=== PATIENT | male | born 1955 | race Caucasian/White ===

== ENCOUNTER 2018-10-23 01:52 | Outpatient (CLI) | payer BC, SELFPAY ==
--- NOTE | 2018-10-23 07:52 | DI.RAD_ITS ---
SYMPTOM/DIAGNOSIS: BILAT KNEE PAIN, M15.9, POLYOSTEOARTHRITIS LEFT KNEE: Three views. No priors. There are post surgical changes of a patellofemoral arthroplasty. The bones are intact and normally mineralized. There is chondrocalcinosis present. The soft tissues are grossly unremarkable. IMPRESSION: 1. Status post patellofemoral arthroplasty. 2. Findings of CPPD arthropathy. RIGHT KNEE: Three views. Comparison is made with 07/06/18. There are again seen post surgical changes of a patellofemoral arthroplasty. The orthopedic hardware appears in good position without evidence of failure. There is minimal spurring seen in the medial femoral tibial joint space. Chondrocalcinosis is seen. The bones are intact. The soft tissues are unremarkable. IMPRESSION: Stable post surgical changes of the right knee. Findings of CPPD arthropathy.
== END 2018-10-23 02:12 ==
PROVIDERS: PCP Family Medicine; Visit Provider Family Medicine
DX: M25.561 Pain in right knee (principal); M25.562 Pain in left knee; M11.261 Other chondrocalcinosis, right knee; M11.262 Other chondrocalcinosis, left knee; Z98.890 Other specified postprocedural states; Z47.89 Encounter for other orthopedic aftercare
CPT/HCPCS: 73562

== ENCOUNTER 2019-01-13 11:24 | Day surgery (SDC) | payer BC, SELFPAY ==
[2019-01-13 11:31] VITALS: BP 143/87; PULSE 58; RESP 16; TEMP 35.7; O2SAT 98
[2019-01-13] MEDS: Lactated Ringers 1,000 ML 80 ML IV (11:56)
[2019-01-13] MEDS: ceFAZolin 2 GM/50 ML BAG IVPB (12:39)
[2019-01-13] MEDS: Bupivacaine 0.5% Pres-Free 30 ML VIAL ×2 (13:11→13:43)
[2019-01-13 13:51] VITALS: BP 91/59; PULSE 72; RESP 18; TEMP 36.8; O2SAT 97
[2019-01-13 13:55] VITALS: BP 99/54; PULSE 70; RESP 17; TEMP 36.8; O2SAT 97
[2019-01-13 14:00] VITALS: BP 100/56; PULSE 70; RESP 17; TEMP 36.8; O2SAT 97
[2019-01-13 14:15] VITALS: BP 114/72; PULSE 68; RESP 11; TEMP 36.5; O2SAT 95
--- NOTE | 2019-01-13 14:16 | W.PM.DSUDISC ---
Discharge Plan Disposition Patient Disposition: HOME Condition: Improving Discharge Details Attending Provider: Markos Craven Primary Care Provider: Tru Nieves Home Meds and New Rx's Prescriptions: No Action omega 4-bmn-iub-fish oil [Fish Oil] 1,000 mg (120 mg-180 mg) capsule 1 cap PO DAILY RF: 0 duloxetine [Cymbalta] 60 mg capsule,delayed release(DR/EC) 60 mg PO HS Qty: 90 RF: 4 meloxicam [Mobic] 15 mg tablet 15 mg PO DAILY Qty: 90 RF: 4 multivitamin [Daily Vitamin] 1 EACH tablet 1 tab PO DAILY RF: 0 ascorbic acid (vitamin C) 1,000 MG tablet 1 tab PO DAILY RF: 0 glucosamine sulfate 500 MG tablet 1 tab PO DAILY RF: 0 C-PAP RF: 0 Zyrtec 10 MG capsule 10 mg PO Daily PRN RF: 0 cholecalciferol (vitamin D3) 1,000 UNIT capsule 1,000 unit PO DAILY RF: 0 Discharge Instructions Additional Instructions: KEEP YOUR LEFT LEG ELEVATED ABOVE HEART LEVEL MUCH POSSIBLE FOR THE NEXT 48 HOURS. YOU MAY WALK ON YOUR LEFT LEG TO EAT OR TO TO TO THE BATHROOM, BUT FOR THE NEXT 48 HOURS, TRY TO MAXIMIZE ELEVATION. USE YOUR CRYOCUFF T0 HELP CONTROL PAIN AND SWELLING. YOU ONLY NEED TO USE CRUTCHES FOR DISCOMFORT. YOU MAY LOOSEN YOUR YUNIEL BANDAGES AND RE-WRAP THEM IF THEY FEEL TOO TIGHT. EXPECT SOME BLOODY DRAINAGE ON THE UNDERLYING GAUZE BANDAGES. ON 01/15/29, YOU MAY REMOVE ALL OF YOUR BANDAGES AND GET YOUR WOUNDS WET IN THE SHOWER WITH SOAP AND WATER. GENTLY PAT YOUR STITCHES DRY AND COVER THEM WITH GAUZE OR BANDAIDS. RE-APPLY A SINGLE 6 INCH YUNIEL BANDAGE FOR SUPPORT DURING THE DAY AND REMOVE IT EACH NIGHT FOR SLEEPING. CONTINUE TO USE YOUR CRYOCUFF NEEDED TO HELP WITH PAIN AND SWELLING. TAKE YOUR USUAL MEDICATIONS BEFORE. TAKE TYLENOL, ADVIL OR ALEVE FOR MILDER PAIN. TYLENOL MAY BE TAKEN AT THE SAME TIME ALEVE OR AT THE SAME TIME ADVIL THEY ARE METABOLIZED DIFFERENTLY AND ARE NOT CROSS TOXIC. TAKE NORCO (HYDROCODONE 5/325MG) 1-2 EVERY 4 HOURS FOR MORE SERIOUS KNEE PAIN. [facility] [place] REGULATIONS LIMIT THE AMOUNT OF NORCO THAT CAN BE PRESCRIBED AT ONE TIME TO 18 TABLETS. FOLLOW-UP WITH DR. CRAVEN IN 10-12 DAYS FOR SUTURE REMOVAL AND REVIEW OF ARTHROSCOPIC PHOTOS. Stand Alone Forms: DSU Post op Instructions, Lily Hartman (DSU) Remove Dressings/Wound Care:: 48 hours Shower/Bathe:: 48 hours Diet:: As Tolerated Discharge Orders Discharge Orders: Discharge Order (Routine); Ordered 01/13/19 Ordered By: Markos Craven
[2019-01-13 14:55] VITALS: BP 119/74; PULSE 65; RESP 16; TEMP 36; O2SAT 95
--- NOTE | 2019-01-13 16:06 | ROE_ITS ---
DATE OF PROCEDURE: January 13, 2019 PREOPERATIVE DIAGNOSIS: Left knee pain, ? medial meniscus tear with chondrocalcinosis of both menisc i. POSTOPERATIVE DIAGNOSIS: Left knee pain, ? medial meniscus tear with chondrocalcinosis of both menis ci, with medial and lateral meniscal tears. PROCEDURE: Arthroscopy of left knee with partial medial and lateral meniscectomies. SURGEON: Markos Benitez M.D. OIL DEVELOPER: Nurse. ANESTHETIC: General via LMA by Aries Schwarz CRNA PREP: ChloraPrep. INDICATIONS: This patient is 63 years of age. He was a paratrooper and sustained bilateral patellar fractures. These were treated in the by patellectomies. 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 This was done with an [place] femoral arthroplasty. He has done very well for the past 15 y ears. He started to develop some pain in both knees and he responded to Synvisc One injections in th e right knee. On the left side, however, he continued to have pain. Because of his prosthetics bein g in place, it was difficult to do any other imaging modalities such as MRI or CT scan as there was t oo much metallic artifact. I recommended arthroscopy as he failed conservative treatment. He had ch ondrocalcinosis of both knees but good preservation of his joint space. I met the patient and his at the Day Surgery holding area and marked his left leg. I reviewed t he planned procedure. OPERATIVE PROCEDURE: He was taken to the operating suite where he underwent general anesthesia via L MA. He received prophylactic Ancef 2 grams IV. This was because of his Tita prosthesis in each knee . After prepping the entire left lower extremity, a time-out was instituted. I then proceeded to pl nickolas his thigh in an instrument worker thigh holding device. A pneumatic tourniquet was applied to the proximal thigh but was not inflated during the procedure. The arthroscope was inserted through an a nterolateral portal. Inflow was provided through the scope. Egress was placed by a portal placed urbina perolaterally. The absence of the patella made landmarks more difficult, but I was able to view both the medial and lateral sides without difficulty once an accessory portal was made through the patell ar tendon. The lateral arthroscopic procedure showed a flap tear of the lateral meniscus. The artic ular cartilage of the lateral femur and tibia were intact. Using an ArthroCare wand, a partial later al meniscectomy was performed over the anterolateral margins of the lateral meniscus. There was a lo ose fragment of meniscal tissue floating around the knee that was possibly causing some of the patien t's symptoms. This was evacuated. I then placed the scope through the anteromedial portal and had t o place to an accessory portal through the central portion of the patellar tendon. This was done by making a longitudinal incision through the patellar tendon. The medial meniscus had degenerative fla p tears in its posteromedial aspect. This was documents with Mavigraph pictures and then the ArthroC are wand was used to perform a partial posteromedial meniscectomy. Final images showed satisfactory stability of the meniscal fragments. There was intact cartilage with no craters to the femur or tibi a, although the patient had some modest narrowing of the articular cartilage. The wound was then irr igated with several thousand cc's of sterile saline. Portals were closed with sutures of #4-0 Ethilo n in a horizontal mattress fashion. Ten cc's of Marcaine 0.5% plain was injected into the knee for p ostoperative analgesia. The wound was dressed with Xeroform gauze, 4x4s, an ABD pad, two 6-inch Nickolas wraps, and a Cryo/Cuff. The patient was taken to outpatient recovery in satisfactory condition, julius rating the procedure well.
== END 2019-01-13 15:15 | disposition home or self-care (01) ==
PROVIDERS: PCP Family Medicine; Visit Provider Orthopaedic Surgery
PROC: (CPT 29870; principal; 2019-01-13 13:00)
DX: M25.562 Pain in left knee (principal); M11.262 Other chondrocalcinosis, left knee; M23.201 Derangement of unspecified lateral meniscus due to old tear or injury, left knee; M23.232 Derangement of other medial meniscus due to old tear or injury, left knee; F17.210 Nicotine dependence, cigarettes, uncomplicated
CPT/HCPCS: 29880; E0114; J0690; J1100; J1885; J2405

== ENCOUNTER 2019-11-03 01:33 | Outpatient (CLI) | payer MEDICARE, BC, SELFPAY ==
--- NOTE | 2019-11-03 06:54 | DI.US_ITS ---
EXAM: US AAA SCREENING CLINICAL HISTORY: screen for AAA,SMOKING HISTORY,ENCOUNTERFOR ANNUAL PHYSICAL EXAM, Z00.00,Z87.891 TECHNIQUE: Ultrasound performed using standard protocol. COMPARISON: No exams were available for comparison FINDINGS: There is no evidence of an abdominal aortic aneurysm. The largest diameter is seen proximally where i t measures 2.6 cm. Left common iliac diameter is 1.2 cm. The left common iliac diameter is 1.3 cm. IMPRESSION: No sonographic evidence of an abdominal aortic aneurysm.
== END 2019-11-03 01:53 ==
PROVIDERS: PCP Family Medicine; Visit Provider Family Medicine
DX: Z13.6 Encounter for screening for cardiovascular disorders (principal); Z87.891 Personal history of nicotine dependence
CPT/HCPCS: 76706

== ENCOUNTER 2020-11-17 03:23 | Outpatient (CLI) | payer MEDICARE, BC, SELFPAY ==
[2020-11-17 16:13] LABS: HCT 48.3 % (40.0-50.0); MCH 30.8 pg (27.0-33.0); MCHC 33.1 % (32.0-36.0); MCV 92.9 fL (80-95); MPV 9.6 fL (8.0-11.0); Platelet Count 288 10^3/uL (130-400); RDW 11.5 % (11.8-14.1); RDW-SD 39.1 fL; WBC 6.91 10^3/uL (4.4-10.8)
[2020-11-17 17:29] LABS: CREATININE 0.7 mg/dL (0.70-1.30); Calculated LDL 129 mg/dL (<100); Cholesterol 239 mg/dL (<200); HDL Cholesterol 41 mg/dL (40-60); Triglyceride 349 mg/dL (<150)
[2020-11-18 18:25] LABS: PSA, Diagnostic <0.1 ng/mL (0.0-4.5)
== END 2020-11-17 03:43 ==
PROVIDERS: PCP Family Medicine; Visit Provider Family Medicine
DX: E78.5 Hyperlipidemia, unspecified (principal); I10 Essential (primary) hypertension; D64.9 Anemia, unspecified; C61 Malignant neoplasm of prostate
CPT/HCPCS: 36415; 80061; 85027; 82565; 84153

== ENCOUNTER 2021-05-03 02:10 | Outpatient (CLI) | payer MEDICARE, BC, SELFPAY ==
--- NOTE | 2021-05-03 09:15 | DI.RAD_ITS ---
Exam(s) XR LUMBAR SPINE COMPLETE EXAM: XR LUMBAR SPINE COMPLETE CLINICAL HISTORY: low back pain s/p fusion,M54.9. TECHNIQUE: 2D digital imaging was performed. COMPARISON: No exams were available for comparison FINDINGS: There is evidence of previous surgery with fusion hardware in the lower lumbar spine at L4-5-S1 level s with bilateral intrapedicular screws at these 3 levels 6 during posterior fusion rods and there are intervertebral disc space divide ower XXXX at L4-5 and L5-S1 levels which are confined to the mid-an terior aspect of the disc spaces with no retropulsion into the canal. Relationship of the intra pedi cular screws relative to the superior endplates appears satisfactory. No evidence of hardware fractu re or listhesis. No radiographic evidence of osteomyelitis. Above the level the hardware there is disc space narrowing on the right side at L3-4 level which is 1 level above the fusion. At L2-3 level there is diffuse bilateral advanced disc space narrowing and at L1-2 level there is also relatively uniform advanced disc space narrowing. Also some posterior os seous ridging at this level. T12-L1 exhibits moderate disc space height loss. There is mild degener ative scoliosis. Sacroiliac joints appear age-appropriate. IMPRESSION: 1. L4-5-S1 fusion hardware. No fracture nor listhesis nor hardware abnormality seen at these levels. 2. Multilevel disc space narrowing above the level of the fusion as described above. At L3-4 level t here is significantly more narrowing on the right side of the disc space than the left side. This wo uld result in element of asymmetric foraminal stenosis. DATA REPOSITORY: RADIATION DOSE DELIVERED:
== END 2021-05-03 02:30 ==
PROVIDERS: PCP Family Medicine; Visit Provider Family Medicine
DX: M43.27 Fusion of spine, lumbosacral region (principal); M48.061 Spinal stenosis, lumbar region without neurogenic claudication
CPT/HCPCS: 72110

== ENCOUNTER 2021-05-23 02:35 | Outpatient (CLI) | payer MEDICARE, BC, SELFPAY ==
--- NOTE | 2021-05-23 07:45 | DI.MRI_ITS ---
Exam(s) MR LUMBAR SPINE WO/W EXAM: MR LUMBAR SPINE WO/W CLINICAL HISTORY: low back pain,PREVIOUS SURGERY OF LUMBAR FUSION,M54.5, SPINAL STENOSIS. TECHNIQUE: Multiplanar multisequence MRI was performed. COMPARISON: No exams were available for comparison FINDINGS: MR examination of the lumbosacral spine was performed according to the usual protocol. Additional po st contrast T1 fat sat images were obtained in axial and sagittal planes. There is prior posterior lumbar fusion with Dunbar rods in place from L4 through S1. There is multilevel disc space narrowing throughout the lumbar region. The conus medullaris appears grossly intact. Mild disc bulge noted at T12-L1 and mild disc bulge noted L1-L2. No gross disc herniation, central c anal stenosis, or neural foraminal stenosis at these levels. At L2-3, there is prominence of the disc osteophyte complex without a focal disc herniation. There i s mild facet hypertrophy bilaterally. There is mild central canal spinal stenosis. There is no defi nite neural foraminal stenosis although the neural foramina are not ideally visualized. At L3-4, there is prominence of the disc osteophyte complex and a disc bulge without focal disc herni ation. There is moderate facet hypertrophic degenerative change. There is moderate central canal sp inal stenosis at this level. There is probable right-sided neural foraminal stenosis at L3-4. At L4-5, no disc herniation, central canal spinal stenosis, or neural foraminal stenosis. At L5-S1, there is no disc herniation, central canal spinal stenosis, or neural foraminal stenosis. There is no evidence of an enhancing lesion in the region surveyed on post contrast imaging. IMPRESSION: Multilevel degenerative changes and prior posterior fusion with Dunbar rods in place from L4 thro ugh S1. Moderate central canal spinal stenosis at L 3 4, mild central canal spinal stenosis at L2-3. DATA REPOSITORY:
[2021-05-23 10:20] LABS: CREATININE 0.7 mg/dL (0.70-1.30)
[2021-05-23] MEDS: Gadoterate meglumine 20 ML VIAL 19 ML IVP (10:37)
[2021-05-23] MEDS: Normal Saline Flush 10 ML SYR IVP (10:37)
== END 2021-05-23 02:55 ==
PROVIDERS: PCP Family Medicine; Visit Provider Family Medicine
DX: M48.061 Spinal stenosis, lumbar region without neurogenic claudication; M47.817 Spondylosis without myelopathy or radiculopathy, lumbosacral region; Z98.1 Arthrodesis status
CPT/HCPCS: 72158; 82565

== ENCOUNTER 2022-02-21 01:38 | Outpatient (CLI) | payer MEDICARE, BC, SELFPAY ==
[2022-02-21 09:35] LABS: CREATININE 0.8 mg/dL (0.70-1.30); Calculated LDL 194 mg/dL (<100); Cholesterol 264 mg/dL (<200); Glucose 100 mg/dL (74-106); HDL Cholesterol 49 mg/dL (40-60); Triglyceride 107 mg/dL (<150)
[2022-02-21 18:40] LABS: PSA, Diagnostic <0.1 ng/mL (<=4.5)
== END 2022-02-21 01:39 | disposition home or self-care (01) ==
LOC: LBO 01:38
PROVIDERS: PCP Family Medicine; Visit Provider Family Medicine
DX: E78.5 Hyperlipidemia, unspecified (principal); R73.9 Hyperglycemia, unspecified; I10 Essential (primary) hypertension; C61 Malignant neoplasm of prostate
CPT/HCPCS: 36415; 80061; 82947; 82565; 84153

== ENCOUNTER 2023-02-06 13:09 | Outpatient (CLI) | payer MEDICARE, BC, SELFPAY ==
[2023-02-06 15:32] LABS: AST 13 U/L (15-37); Calculated LDL 67 mg/dL (<100); Cholesterol 146 mg/dL (<200); HDL Cholesterol 61 mg/dL (40-60); Triglyceride 91 mg/dL (<150)
[2023-02-07 21:13] LABS: PSA, Diagnostic <0.1 ng/mL (<=4.5)
== END 2023-02-06 13:10 | disposition home or self-care (01) ==
LOC: LBO 13:10
PROVIDERS: PCP Family Medicine; Visit Provider Family Medicine
DX: E78.5 Hyperlipidemia, unspecified (principal); C61 Malignant neoplasm of prostate; K76.0 Fatty (change of) liver, not elsewhere classified
CPT/HCPCS: 36415; 80061; 84153; 84450

== ENCOUNTER 2024-02-18 05:49 | Outpatient (CLI) | payer MEDICARE, BC, SELFPAY ==
[2024-02-18 14:36] LABS: Hemoglobin A1C 5.7 % (<5.7)
[2024-02-18 14:37] LABS: Calculated LDL 54 mg/dL (<100); Cholesterol 129 mg/dL (<200); HDL Cholesterol 67 mg/dL (40-60); Triglyceride 43 mg/dL (<150)
[2024-02-18 22:58] LABS: PSA, Diagnostic <0.1 ng/mL (<=4.5)
== END 2024-02-18 05:50 | disposition home or self-care (01) ==
LOC: LBO 05:50
PROVIDERS: PCP Family Medicine; Visit Provider Family Medicine
DX: E11.51 Type 2 diabetes mellitus with diabetic peripheral angiopathy without gangrene (principal); E78.5 Hyperlipidemia, unspecified; C61 Malignant neoplasm of prostate
CPT/HCPCS: 36415; 80061; 83036; 84153